=== PATIENT | female | born 1995 | race Two or more races ===

== ENCOUNTER 2020-12-05 12:25 | Inpatient (IN) | payer OTHER ==
[2020-12-05 14:10] VITALS: BMI 32.8
[2020-12-05 15:13] LABS: BASO % 0.3 % (0-2.0); EOS % 0.3 % (0-4.5); HEMATOCRIT 39.1 % (32.4-45.2); HEMOGLOBIN 13.4 GM/dL (10.7-15.3); LYMPH % 23.4 % (8-40); MCH 32.9 pg (25.7-33.7); MCHC 34.3 g/dl (32.0-36.0); MEAN CELL VOLUME 95.8 fl (80-96); MEAN PLT VOLUME 9.4 fl (7.5-11.1); MONO % 9.9 % (3.8-10.2); NEUT % 66.1 % (42.8-82.8); PLATELET COUNT 142 10^3/uL (134-434); RBC 4.08 M/mm3 (3.60-5.2); RDW 14.1 % (11.6-15.6)
[2020-12-05 15:17] LABS: INR 1.2 (0.83-1.09); PROTHROMBIN TIME (PATIENT) 14.5 SEC (9.7-13.0)
[2020-12-05 15:20] LABS: ACTIVATED PTT 32.5 SECONDS (25.2-36.5)
[2020-12-05 15:32] LABS: BLOOD UREA NITROGEN 5.3 mg/dL (7-18); CALCIUM 8.8 mg/dL (8.5-10.1)
[2020-12-05 15:35] LABS: CREATININE 0.5 mg/dL (0.55-1.3)
[2020-12-05] MEDS ORDERED: OXYTOCIN 30 UNITS in 0.9% NS 30 UNIT/500 ML INFUS.BAG IVPB SCH (17:15)
[2020-12-05] MEDS ORDERED: BUTORPHANOL TARTRATE 2 MG/ML VIAL IVPUSH ONE (17:21)
[2020-12-05] MEDS ORDERED: PROMETHAZINE HCL 25 MG/1 ML VIAL IVPUSH ONE (17:25)
[2020-12-05] MEDS: ELECTROLYTE-148 SOLN 1,000 ML IV SCH ×2 (18:00→21:45)
[2020-12-05] MEDS ORDERED: OXYTOCIN 30 UNITS in 0.9% NS 30 UNIT/500 ML INFUS.BAG IVPB ONE (20:10)
[2020-12-05] MEDS ORDERED: PROMETHAZINE HCL 25 MG/1 ML VIAL ONE (20:24)
[2020-12-05] MEDS ORDERED: BUTORPHANOL TARTRATE 2 MG/ML VIAL ONE (20:24)
[2020-12-05 21:39] LABS: HIV INTERPRETATION NEGATIVE (NEGATIVE)
[2020-12-06] MEDS ORDERED: FENTANYL/BUPIVACAINE/NS/PF - PCEA - 50 ML DISP.SYRIN EP ONE ×4 (00:01→14:00)
[2020-12-06] MEDS ORDERED: BUPIVACAINE HCL/PF 0.25% (2.5MG/ML) 10 ML VIAL ONE ×2 (01:19→13:21)
[2020-12-06] MEDS ORDERED: NALOXONE HCL 0.4 MG/ML VIAL IVPUSH PRN (02:47)
[2020-12-06] MEDS ORDERED: PCA PUMP NR ONE (02:51)
[2020-12-06] MEDS ORDERED: FENTANYL/BUPIVACAINE/NS/PF - PCEA - 50 ML DISP.SYRIN EP SCH (03:00)
[2020-12-06] MEDS: ELECTROLYTE-148 SOLN 1,000 ML IV SCH (05:00)
[2020-12-06] MEDS ORDERED: CITRIC ACID/SODIUM CITRATE 30 ML UNIT-DOSE CUP PO ONE (15:04)
[2020-12-06] MEDS ORDERED: ONDANSETRON 4 MG/2 ML VIAL ONE (15:25)
[2020-12-06] MEDS ORDERED: ceFAZolin SODIUM 1 GM VIAL ONE (15:25)
[2020-12-06] MEDS ORDERED: DEXAMETHASONE SOD PHOSPHATE 4 MG/1 ML VIAL ONE (15:25)
[2020-12-06] MEDS ORDERED: LIDOCAINE HCL/EPINEPHRINE/PF 10 ML VIAL ONE (15:28)
[2020-12-06] MEDS ORDERED: OXYTOCIN 20 UNITS in 0.9% NS 20 UNIT/1,000 ML INFUS.BAG IV ONE (16:02)
[2020-12-06 16:05] LABS: CALCIUM 9.1 mg/dL (8.5-10.1)
[2020-12-06] MEDS ORDERED: OXYTOCIN 10 UNITS/ML VIAL ONE (16:06)
[2020-12-06 16:07] LABS: ALBUMIN 2.7 g/dl (3.4-5.0); BLOOD UREA NITROGEN 7.2 mg/dL (7-18)
[2020-12-06 16:10] LABS: CREATININE 0.7 mg/dL (0.55-1.3)
[2020-12-06 16:11] LABS: BILIRUBIN,TOTAL 1.1 mg/dL (0.2-1); TOT PROT 6.5 g/dl (6.4-8.2)
[2020-12-06 16:58] LABS: CORD HCO3 24.3 mmHg (20-29); CORD PCO2 58.2 mmHg (30-78); CORD pH 7.238 (7.14-7.44)
[2020-12-06] MEDS ORDERED: KETOROLAC TROMETHAMINE 30 MG/1 ML VIAL ONE (16:58)
[2020-12-06 17:01] LABS: CORD BASE EXCESS -3.1 mmol/L (0-2); CORD HCO3 23.5 mmHg (20-29); CORD PCO2 47.1 mmHg (30-78); CORD pH 7.315 (7.14-7.44)
[2020-12-06] MEDS ORDERED: ONDANSETRON 4 MG/2 ML VIAL IVPB PRN (17:21)
[2020-12-06] MEDS ORDERED: ACETAMINOPHEN 1000 MG/100 ML VIAL (NON FORMULARY) IVPB PRN (17:21)
[2020-12-06] MEDS ORDERED: SENNOSIDES/DOCUSATE COMBO (SENNA PLUS) TABLET (UD) PO PRN (17:21)
[2020-12-06] MEDS ORDERED: oxyCODONE HCL 5 MG TABLET PO PRN (17:21)
[2020-12-06] MEDS: OXYTOCIN 20 UNITS in 0.9% NS 20 UNIT/1,000 ML INFUS.BAG IV SCH (18:00)
[2020-12-06] MEDS ORDERED: IBUPROFEN 800 MG/8 ML IJ IVPB ONE (19:33)
[2020-12-06] MEDS: IBUPROFEN 800 MG/8 ML IJ IVPB PRN (19:40)
[2020-12-07] MEDS: CEFAZOLIN 1 GM/D5W 1 GM/50 ML BAG IVPB SCH ×2 (00:08→07:35)
[2020-12-07] MEDS: IBUPROFEN 800 MG/8 ML IJ IVPB PRN (09:09)
[2020-12-07 10:00] LABS: BASO % 0.4 % (0-2.0); EOS % 0.3 % (0-4.5); HEMATOCRIT 27.8 % (32.4-45.2); LYMPH % 10.5 % (8-40); MCH 31.9 pg (25.7-33.7); MCHC 32.4 g/dl (32.0-36.0); MEAN CELL VOLUME 98.4 fl (80-96); MEAN PLT VOLUME 9.7 fl (7.5-11.1); MONO % 5.4 % (3.8-10.2); NEUT % 83.4 % (42.8-82.8); PLATELET COUNT 111 10^3/uL (134-434); RBC 2.82 M/mm3 (3.60-5.2); RDW 13.9 % (11.6-15.6); WHITE BLOOD COUNT 11.1 K/mm3 (4.0-10.0)
[2020-12-07] MEDS: OXYTOCIN 20 UNITS in 0.9% NS 20 UNIT/1,000 ML INFUS.BAG IV SCH (10:49)
[2020-12-07] MEDS: IBUPROFEN 600 MG TABLET (FP) PO PRN (15:45)
[2020-12-07] MEDS: ACETAMINOPHEN 325 MG TABLET (FP) PO PRN (15:46)
[2020-12-07] MEDS ORDERED: BISACODYL 10 MG SUPP.RECT RC PRN (17:21)
[2020-12-08] MEDS: SIMETHICONE 80 MG TAB.CHEW (FP) PO PRN ×2 (06:05→18:17)
[2020-12-08] MEDS: ACETAMINOPHEN 325 MG TABLET (FP) PO PRN ×2 (06:05→18:17)
[2020-12-08] MEDS: IBUPROFEN 600 MG TABLET (FP) PO PRN ×2 (06:06→18:17)
[2020-12-09] MEDS: ACETAMINOPHEN 325 MG TABLET (FP) PO PRN (04:28)
[2020-12-09] MEDS: IBUPROFEN 600 MG TABLET (FP) PO PRN (04:29)
[2020-12-09 09:43] VITALS: BP 122/77; PULSE 102; TEMP 98.2
== END 2020-12-09 12:30 | disposition home or self-care (01) | DRG 540 ==
LOC: JDEL 12:25 → JLDR 13:15 → J3W 12-06 21:00
PROVIDERS: ADMIT Family Medicine; ATTEND Family Medicine
PROC: 10D00Z1 Extraction of Products of Conception, Low, Open Approach (ICD-10-PCS; principal; 2020-12-06)
PROC: 10907ZC Drainage of Amniotic Fluid, Therapeutic from Products of Conception, Via Natural or Artificial Opening (ICD-10-PCS; 2020-12-06)
DX: O63.0 Prolonged first stage (of labor) (principal); O77.0 Labor and delivery complicated by meconium in amniotic fluid; Z3A.40 40 weeks gestation of pregnancy; Z37.0 Single live birth
CPT/HCPCS: 36415; 36600; 59025; 76775-TC; 76856-TC; 80048; 80053; 82803; 85025; 85610; 85730; 86780; 86850; 86900; 86901; 87389; C9803; J0131; U0003; U0005

== ENCOUNTER 2023-01-26 23:59 | Inpatient (IN) | payer OTHER ==
[2023-01-27 00:08] VITALS: BMI 26.9
[2023-01-27] MEDS ORDERED: SODIUM CHLORIDE 0.9% 500 ML INFUS.BAG IV ONE (01:05)
[2023-01-27] MEDS ORDERED: ONDANSETRON 4 MG/2 ML VIAL IVPUSH ONE (01:05)
[2023-01-27] MEDS ORDERED: ACETAMINOPHEN 1000 MG/100 ML BAG IVPB ONE (01:05)
[2023-01-27] MEDS ORDERED: ACETAMINOPHEN INJECTION 100 ML IVPB ONE (01:12)
[2023-01-27 01:18] LABS: BASO % 0.9 % (0-2.0); EOS % 0.8 % (0-4.5); HEMATOCRIT 39.8 % (32.4-45.2); HEMOGLOBIN 13.6 GM/dL (10.7-15.3); LYMPH % 31.4 % (8-40); MCHC 34.1 g/dl (32.0-36.0); MEAN CELL VOLUME 93.6 fl (80-96); MEAN PLT VOLUME 8.3 fl (7.5-11.1); MONO % 7.8 % (3.8-10.2); NEUT % 59.1 % (42.8-82.8); PLATELET COUNT 211 10^3/uL (134-434); RBC 4.25 M/mm3 (3.60-5.2); RDW 13.7 % (11.6-15.6); WHITE BLOOD COUNT 6.2 K/mm3 (4.0-10.0)
[2023-01-27] MEDS ORDERED: ONDANSETRON 4 MG/2 ML VIAL ONE (01:26)
[2023-01-27 01:36] LABS: POTASSIUM 3.9 mmol/L (3.5-5.1)
[2023-01-27 01:38] LABS: CALCIUM 9.4 mg/dL (8.5-10.1)
[2023-01-27 01:39] LABS: ALBUMIN 3.8 g/dl (3.4-5.0); BLOOD UREA NITROGEN 14.3 mg/dL (7-18)
[2023-01-27 01:42] LABS: CREATININE 0.7 mg/dL (0.55-1.3)
[2023-01-27 01:43] LABS: BILIRUBIN,TOTAL 0.6 mg/dL (0.2-1); TOT PROT 7.9 g/dl (6.4-8.2)
[2023-01-27] MEDS ORDERED: LACTATED RINGERS SOLUTION 1000 ML INFUS.BAG IV ONE (03:36)
[2023-01-27] MEDS ORDERED: ONDANSETRON 4 MG/2 ML VIAL IVPUSH PRN (03:51)
[2023-01-27] MEDS ORDERED: LACTATED RINGERS SOLUTION 1,000 ML/1,000 ML INFUS.BAG IV SCH ×2 (04:15→09:00)
[2023-01-27 04:59] LABS: INR 1.44 (0.83-1.09); PROTHROMBIN TIME (PATIENT) 16.6 SEC (9.7-13.0)
[2023-01-27 05:02] LABS: ACTIVATED PTT 38.8 SECONDS (25.2-36.5)
[2023-01-27] MEDS ORDERED: LACTATED RINGERS SOLUTION 1,000 ML/1,000 ML INFUS.BAG IV STA ×2 (05:56→05:57)
[2023-01-27] MEDS ORDERED: PHYTONADIONE 10 MG/1 ML AMP IVPB ONE (10:00)
[2023-01-27] MEDS ORDERED: PHYTONADIONE 10 MG/1 ML AMP ONE (10:08)
[2023-01-27] MEDS: DEXTROSE 5%-LACTATED RINGERS 1,000 ML IV SCH (10:46)
[2023-01-27 15:09] LABS: HEMATOCRIT 39.3 % (32.4-45.2); HEMOGLOBIN 13.4 GM/dL (10.7-15.3); MCH 32.1 pg (25.7-33.7); MEAN CELL VOLUME 94.3 fl (80-96); MEAN PLT VOLUME 8.5 fl (7.5-11.1); PLATELET COUNT 180 10^3/uL (134-434); RBC 4.16 M/mm3 (3.60-5.2); RDW 13.6 % (11.6-15.6)
[2023-01-27 15:34] LABS: POTASSIUM 3.8 mmol/L (3.5-5.1)
[2023-01-27 15:36] LABS: ALBUMIN 3.5 g/dl (3.4-5.0); CALCIUM 8.6 mg/dL (8.5-10.1)
[2023-01-27 15:37] LABS: BLOOD UREA NITROGEN 5.5 mg/dL (7-18)
[2023-01-27 15:39] LABS: CREATININE 0.6 mg/dL (0.55-1.3)
[2023-01-27 15:41] LABS: BILIRUBIN,TOTAL 0.6 mg/dL (0.2-1); TOT PROT 6.8 g/dl (6.4-8.2)
[2023-01-27] MEDS ORDERED: PIPERACILLIN/TAZOB 2.25 GM 2.25 GM/50 ML BAG IVPB ONE (17:17)
[2023-01-27] MEDS: PIPERACILLIN/TAZOB 2.25 GM 2.25 GM in DEXTROSE 5%-WATER - 50 ML IVPB SCH (17:23)
[2023-01-28] MEDS ORDERED: ACETAMINOPHEN 1000 MG/100 ML BAG IVPB ONE (00:10)
[2023-01-28] MEDS ORDERED: ACETAMINOPHEN INJECTION 100 ML IVPB ONE (00:18)
[2023-01-28] MEDS ORDERED: PIPERACILLIN/TAZOB 2.25 GM 2.25 GM/50 ML BAG IVPB ONE ×2 (02:07→08:50)
[2023-01-28] MEDS: PIPERACILLIN/TAZOB 2.25 GM 2.25 GM in DEXTROSE 5%-WATER - 50 ML IVPB SCH ×2 (02:12→11:37)
[2023-01-28 08:12] LABS: BASO % 0.6 % (0-2.0); EOS % 2.2 % (0-4.5); HEMATOCRIT 36.2 % (32.4-45.2); HEMOGLOBIN 12.2 GM/dL (10.7-15.3); LYMPH % 39.9 % (8-40); MCHC 33.7 g/dl (32.0-36.0); MEAN CELL VOLUME 94.7 fl (80-96); MEAN PLT VOLUME 8.8 fl (7.5-11.1); MONO % 9.1 % (3.8-10.2); NEUT % 48.2 % (42.8-82.8); PLATELET COUNT 163 10^3/uL (134-434); RBC 3.82 M/mm3 (3.60-5.2); RDW 13.8 % (11.6-15.6); WHITE BLOOD COUNT 4.5 K/mm3 (4.0-10.0)
[2023-01-28 08:19] LABS: INR 1.51 (0.83-1.09); PROTHROMBIN TIME (PATIENT) 17.4 SEC (9.7-13.0)
[2023-01-28 08:21] LABS: POTASSIUM 3.7 mmol/L (3.5-5.1)
[2023-01-28 08:23] LABS: CALCIUM 8.2 mg/dL (8.5-10.1)
[2023-01-28 08:24] LABS: ALBUMIN 2.9 g/dl (3.4-5.0); BLOOD UREA NITROGEN 6.8 mg/dL (7-18)
[2023-01-28 08:26] LABS: BILIRUBIN,DIRECT 0.2 mg/dL (0.0-0.2); CREATININE 0.7 mg/dL (0.55-1.3)
[2023-01-28 08:28] LABS: BILIRUBIN,TOTAL 0.6 mg/dL (0.2-1)
[2023-01-28] MEDS: DEXTROSE 5%-LACTATED RINGERS 1,000 ML IV SCH ×2 (11:37→15:05)
[2023-01-28] MEDS ORDERED: TAZOB IVPB SCH (19:45)
[2023-01-28] MEDS ORDERED: PIPERACILLIN IVPB SCH (19:45)
[2023-01-28] MEDS ORDERED: DEXTROSE 5% IVPB SCH (19:45)
[2023-01-28] MEDS ORDERED: WATER IVPB SCH (19:45)
[2023-01-28] MEDS: PIPERACILLIN/TAZOB 3.375 GM 3.375 GM in DEXTROSE 5%-WATER - 50 ML IVPB SCH (22:01)
[2023-01-29] MEDS: PIPERACILLIN/TAZOB 3.375 GM 3.375 GM in DEXTROSE 5%-WATER - 50 ML IVPB SCH ×2 (03:17→09:27)
[2023-01-29] MEDS: DEXTROSE 5%-LACTATED RINGERS 1,000 ML IV SCH ×3 (03:17→14:50)
[2023-01-29] MEDS ORDERED: PROPOFOL 20 ML ONE (10:51)
[2023-01-29] MEDS ORDERED: LIDOCAINE HCL/PF 2% SDV 5ML VIAL ONE (10:51)
[2023-01-29] MEDS ORDERED: MIDAZOLAM HCL 2 MG/2 ML SINGLE DOSE VIAL ONE (10:52)
[2023-01-29] MEDS ORDERED: ROCURONIUM BROMIDE 50 MG/5 ML SYRINGE ONE (10:52)
[2023-01-29] MEDS ORDERED: SUCCINYLCHOLINE CHLORIDE 200 MG/10 ML SYRINGE ONE (10:52)
[2023-01-29] MEDS ORDERED: BUPIVACAINE HCL/PF 0.5% (5MG/ML) 10 ML VIAL ONE (11:10)
[2023-01-29] MEDS ORDERED: BUPIVACAINE HCL/PF 0.25% (2.5MG/ML) 10 ML VIAL ONE ×2 (11:14→11:15)
[2023-01-29] MEDS ORDERED: DEXAMETHASONE SOD PHOSPHATE 4 MG/1 ML VIAL ONE (11:54)
[2023-01-29] MEDS ORDERED: BUPIVACAINE HCL/PF 0.25% (2.5MG/ML) 10 ML VIAL IJ ONE ×3 (12:06)
[2023-01-29] MEDS ORDERED: KETOROLAC TROMETHAMINE 30 MG/1 ML VIAL ONE (12:39)
[2023-01-29] MEDS ORDERED: ONDANSETRON 4 MG/2 ML VIAL ONE (12:39)
[2023-01-29] MEDS ORDERED: PROMETHAZINE HCL 25 MG/1 ML VIAL IVPB PRN (13:13)
[2023-01-29] MEDS ORDERED: ONDANSETRON 4 MG/2 ML VIAL IVPUSH PRN ×2 (13:13→13:30)
[2023-01-29] MEDS ORDERED: ACETAMINOPHEN 1000 MG/100 ML BAG IVPB ONE ×2 (13:15→13:30)
[2023-01-29] MEDS ORDERED: LACTATED RINGERS SOLUTION 1,000 ML IV SCH (13:15)
[2023-01-29] MEDS ORDERED: oxyCODONE HCL 5 MG TABLET PO PRN ×2 (13:30)
[2023-01-29] MEDS ORDERED: IBUPROFEN 600 MG TABLET (FP) PO PRN (19:30)
[2023-01-29] MEDS: ACETAMINOPHEN 500 MG TABLET (FP) PO SCH (19:53)
[2023-01-30] MEDS: ACETAMINOPHEN 500 MG TABLET (FP) PO SCH ×3 (01:49→13:41)
[2023-01-30] MEDS: DEXTROSE 5%-LACTATED RINGERS 1,000 ML IV SCH (04:24)
[2023-01-30 11:34] LABS: BASO % 0.3 % (0-2.0); EOS % 0.4 % (0-4.5); LYMPH % 24.1 % (8-40); MCH 32.4 pg (25.7-33.7); MCHC 34.3 g/dl (32.0-36.0); MEAN CELL VOLUME 94.4 fl (80-96); MEAN PLT VOLUME 8.7 fl (7.5-11.1); MONO % 8.4 % (3.8-10.2); NEUT % 66.8 % (42.8-82.8); PLATELET COUNT 162 10^3/uL (134-434); RBC 3.71 M/mm3 (3.60-5.2); RDW 13.6 % (11.6-15.6); WHITE BLOOD COUNT 8.3 K/mm3 (4.0-10.0)
[2023-01-30 11:55] LABS: POTASSIUM 3.2 mmol/L (3.5-5.1)
[2023-01-30 12:00] LABS: ALBUMIN 3.3 g/dl (3.4-5.0); BLOOD UREA NITROGEN 4.4 mg/dL (7-18); CALCIUM 8.2 mg/dL (8.5-10.1)
[2023-01-30 12:04] LABS: CREATININE 0.5 mg/dL (0.55-1.3)
[2023-01-30 12:06] LABS: BILIRUBIN,TOTAL 0.7 mg/dL (0.2-1); TOT PROT 6.3 g/dl (6.4-8.2)
[2023-01-30] MEDS ORDERED: POTASSIUM CHLORIDE ORAL LIQUID 20 MEQ/15 ML PO ONE (13:28)
[2023-01-30 14:18] VITALS: BP 106/67; PULSE 71; RESP 18; TEMP 98.6
== END 2023-01-30 16:58 | disposition home or self-care (01) | DRG 263 ==
LOC: JER 23:59 → JERBED 01-27 03:05 → J8W 01-28 10:01
PROVIDERS: ADMIT Internal Medicine; ATTEND Nurse Practitioner Family
PROC: 0FT44ZZ Resection of Gallbladder, Percutaneous Endoscopic Approach (ICD-10-PCS; principal; 2023-01-29 10:30)
DX: K85.10 Biliary acute pancreatitis without necrosis or infection (principal); E78.5 Hyperlipidemia, unspecified; K80.20 Calculus of gallbladder without cholecystitis without obstruction; R10.9 Unspecified abdominal pain
CPT/HCPCS: 36415; 74181-TC; 76705-TC; 80048; 80053; 80061; 80076; 82150; 83690; 84703; 85025; 85027; 85610; 85730; 86140; 86850; 86900; 86901; 87040; 88304-TC; 93005; 93010; 94010; 94760; 99285-25

== ENCOUNTER 2024-05-14 13:46 | Emergency (ER) | payer OTHER ==
[2024-05-14] MEDS ORDERED: ACETAMINOPHEN 325 MG TABLET (FP) ONE (15:32)
[2024-05-14] MEDS: ACETAMINOPHEN 325 MG TABLET (FP) PO ONE (16:01)
[2024-05-14 16:10] VITALS: BP 107/79; PULSE 87; RESP 100; TEMP 99; BMI 29.7
[2024-05-14 16:14] LABS: BASO % 0.8 % (0-2.0); EOS % 0.6 % (0-4.5); HEMATOCRIT 41.5 % (32.4-45.2); HEMOGLOBIN 13.5 GM/dL (10.7-15.3); LYMPH % 36.4 % (8-40); MCHC 32.6 g/dl (32.0-36.0); MEAN CELL VOLUME 95.2 fl (80-96); MEAN PLT VOLUME 8.8 fl (7.5-11.1); NEUT % 56.2 % (42.8-82.8); PLATELET COUNT 228 10^3/uL (134-434); RBC 4.36 M/mm3 (3.60-5.2); RDW 13.8 % (11.6-15.6); WHITE BLOOD COUNT 4.7 K/mm3 (4.0-10.0)
[2024-05-14 16:19] LABS: EPI CELLS 9 /uL (0-25.1); HYALINE CASTS 0 /uL (0-3.1); PH,URINE 5.5 (5.0-8.0); URINE APPEARANCE CLEAR; URINE BACTERIA 83 /uL (0-1359); URINE BILIRUBIN NEGATIVE (NEGATIVE); URINE COLOR YELLOW; URINE GLUCOSE (UA) NEGATIVE (NEGATIVE); URINE KETONE NEGATIVE (NEGATIVE); URINE LEUK ESTERASE NEGATIVE (NEGATIVE); URINE NITRITE NEGATIVE (NEGATIVE); URINE PROTEIN NEGATIVE (NEGATIVE); URINE RBC 56 /uL (0-23.9); URINE UROBILINOGEN 0.2 mg/dL (0.2-1.0); URINE WBC 7 /uL (0-25.8)
[2024-05-14 16:35] LABS: HCG,QUALITATIVE URINE Negative
[2024-05-14 16:50] LABS: POTASSIUM 3.8 mmol/L (3.5-5.1)
[2024-05-14 16:53] LABS: BLOOD UREA NITROGEN 12.4 mg/dL (7-18); CALCIUM 9.2 mg/dL (8.5-10.1); MAGNESIUM 1.8 mg/dL (1.8-2.4)
[2024-05-14 16:56] LABS: CREATININE 0.6 mg/dL (0.55-1.3)
[2024-05-14 16:57] LABS: BILIRUBIN,TOTAL 0.6 mg/dL (0.2-1)
[2024-05-14 16:58] LABS: TOT PROT 7.8 g/dl (6.4-8.2)
== END 2024-05-14 19:11 | disposition home or self-care (01) ==
LOC: JER 13:46
DX: R10.11 Right upper quadrant pain (principal); R10.31 Right lower quadrant pain; N83.201 Unspecified ovarian cyst, right side; N83.202 Unspecified ovarian cyst, left side
CPT/HCPCS: 36415; 76830-TC; 80053; 81003; 83690; 83735; 84703; 85025; 87086; 99284-25